=== PATIENT | male | born 1955 | race Caucasian/White ===

== ENCOUNTER 2017-04-16 05:05 | Inpatient (IN) | payer SELFPAY ==
[2017-04-16] MEDS: ONDANSETRON 4 MG INJ IV (05:17)
[2017-04-16 05:18] LABS: ADD MAN DIFF? NO
[2017-04-16] MEDS: HEPARIN 1000 UNITS/ML 10 ML INJ IV (05:20)
[2017-04-16] MEDS: morphine 10 MG INJ IV (05:21)
[2017-04-16 05:24] LABS: BASOPHIL # 0.1 10^3/ul (0.0-0.1); BASOPHILS % 0.3 % (0.0-2.0); EOSINOPHILS # 0.3 10^3/ul (0.0-0.5); HEMATOCRIT 50.7 % (42.0-52.0); LYMPHOCYTES # 4.4 10^3/ul (0.8-2.9); LYMPHOCYTES % 29.9 % (15.0-51.0); MEAN CORPUSCULAR HEMOGLOBIN 25.2 pg (29.0-33.0); MEAN CORPUSCULAR HGB CONC 31.6 g/dl (32.0-37.0); MEAN PLATELET VOLUME 9.9 fl (7.4-10.4); MONOCYTE # 1.1 10^3/ul (0.3-0.9); MONOCYTES % 7.5 % (0.0-11.0); NEUTROPHIL # 8.7 10^3/ul (1.6-7.5); NEUTROPHILS % 59.5 % (39.0-77.0); PLATELET COUNT 301 10^3/UL (140-415); RED BLOOD COUNT 6.34 10^6/ul (4.70-6.10); RED CELL DISTRIBUTION WIDTH 17.5 % (11.5-14.5)
[2017-04-16 05:24] LABS: WHITE BLOOD COUNT 14.6 10^3/ul (4.8-10.8)
[2017-04-16 05:41] LABS: ANION GAP 19 (8-16); BLOOD UREA NITROGEN 14 mg/dl (7-20); CALCIUM 9.1 mg/dl (8.4-10.2); CARBON DIOXIDE 25 mmol/L (21-31); CHLORIDE 107 mmol/L (97-110); CREATININE 1.04 mg/dl (0.61-1.24); GLUCOSE 143 mg/dl (70-220); POTASSIUM 3.5 mmol/L (3.5-5.1); SODIUM 147 mmol/L (135-144)
[2017-04-16] MEDS ORDERED: HEPARIN 1000 UNITS/ML 10 ML INJ (05:45)
[2017-04-16] MEDS ORDERED: IOHEXOL 350MG/ML 50 ML BTL (05:45)
[2017-04-16] MEDS ORDERED: IODIXANOL LOCM 100 ML BTL ×2 (05:46→06:11)
[2017-04-16] MEDS ORDERED: MIDAZOLAM 1 MG/ML 2 ML INJ (05:46)
[2017-04-16] MEDS ORDERED: FENTAnyl 50 MCG/ML VIAL (05:46)
[2017-04-16 05:53] LABS: B-TYPE NATRIURETIC PEPTIDE 40 PG/ML (0-125); TROPONIN-I 0.033 ng/ml (0.00-0.12)
[2017-04-16] MEDS ORDERED: NITROGLYCERIN (IC) 100 MCG/ML INJ (06:07)
[2017-04-16] MEDS ORDERED: SOD CHLORIDE 0.9% 500 ML (06:11)
[2017-04-16] MEDS ORDERED: TICAGRELOR 90 MG TABLET (06:16)
[2017-04-16] MEDS ORDERED: SOD CHLORIDE 0.9% 1,000 ML IV (06:36)
[2017-04-16] MEDS: ASPIRIN (EC) 81 MG TAB PO (08:57)
[2017-04-16] MEDS ORDERED: HYDROCODONE/APAP (5/325) TAB PO (09:30)
[2017-04-16] MEDS ORDERED: NACL 0.9% 3 ML SYG IV (09:30)
[2017-04-16] MEDS ORDERED: ONDANSETRON 4 MG INJ IV (09:30)
[2017-04-16] MEDS ORDERED: LORAZEPAM 0.5 MG TAB PO (09:30)
[2017-04-16] MEDS ORDERED: ACETAMINOPHEN 325 MG TAB PO (09:30)
[2017-04-16] MEDS ORDERED: morphine 2 MG INJ IV (09:30)
[2017-04-16] MEDS ORDERED: MAGNESIUM HYDROXIDE 30ML CUP PO (09:30)
[2017-04-16] MEDS ORDERED: LACTATED RINGER'S 1,000 ML IV (10:00)
[2017-04-16] MEDS: FAMOTIDINE 20 MG TAB PO ×2 (10:06→20:38)
[2017-04-16] MEDS: SOD CHLORIDE 0.9% 1,000 ML IV (10:12)
[2017-04-16 11:38] LABS: CREATINE KINASE 921 IU/L (23-200)
[2017-04-16 11:44] LABS: CK INDEX 6.3
[2017-04-16 17:31] LABS: CREATINE KINASE 695 IU/L (23-200)
[2017-04-16 17:37] LABS: CK INDEX 6.4
[2017-04-16] MEDS ORDERED: hydrALAzine 20 MG INJ IV (20:30)
[2017-04-16] MEDS: ATORVASTATIN 80 MG TAB PO (20:39)
[2017-04-16] MEDS: CLOPIDOGREL 75 MG TAB PO (20:51)
[2017-04-16] MEDS: VALSARTAN 80 MG TAB PO (20:53)
[2017-04-16] MEDS ORDERED: TICAGRELOR 90 MG TABLET PO (21:00)
[2017-04-17 05:29] LABS: ADD MAN DIFF? NO
[2017-04-17 05:42] LABS: WHITE BLOOD COUNT 12.8 10^3/ul (4.8-10.8)
[2017-04-17 05:42] LABS: BASOPHIL # 0.1 10^3/ul (0.0-0.1); BASOPHILS % 0.4 % (0.0-2.0); EOSINOPHILS # 0.2 10^3/ul (0.0-0.5); EOSINOPHILS % 1.6 % (0.0-7.0); HEMATOCRIT 48.9 % (42.0-52.0); HEMOGLOBIN 15.6 g/dl (14.0-18.0); LYMPHOCYTES # 2.2 10^3/ul (0.8-2.9); LYMPHOCYTES % 17.1 % (15.0-51.0); MEAN CORPUSCULAR HEMOGLOBIN 25.1 pg (29.0-33.0); MEAN CORPUSCULAR HGB CONC 31.9 g/dl (32.0-37.0); MEAN CORPUSCULAR VOLUME 78.6 fl (82.0-101.0); MEAN PLATELET VOLUME 10.4 fl (7.4-10.4); MONOCYTE # 0.8 10^3/ul (0.3-0.9); MONOCYTES % 6.6 % (0.0-11.0); NEUTROPHIL # 9.4 10^3/ul (1.6-7.5); NEUTROPHILS % 73.6 % (39.0-77.0); PLATELET COUNT 252 10^3/UL (140-415); RED BLOOD COUNT 6.22 10^6/ul (4.70-6.10)
[2017-04-17 06:10] LABS: ANION GAP 13 (8-16); BLOOD UREA NITROGEN 8 mg/dl (7-20); CALCIUM 9.1 mg/dl (8.4-10.2); CARBON DIOXIDE 25 mmol/L (21-31); CHLORIDE 111 mmol/L (97-110); CHOL/HDL RATIO 5.8 RATIO; CHOLESTEROL 180 mg/dl (100-200); CREATINE KINASE 361 IU/L (23-200); CREATININE 0.87 mg/dl (0.61-1.24); GLUCOSE 95 mg/dl (70-220); HDL CHOLESTEROL 31 mg/dl (30-78); LDL CHOLESTEROL,CALCULATED 105 mg/dl; SODIUM 145 mmol/L (135-144); TRIGLYCERIDES 220 mg/dl (0-149)
[2017-04-17 06:20] LABS: CK INDEX 4.9
[2017-04-17] MEDS: FAMOTIDINE 20 MG TAB PO (08:49)
[2017-04-17] MEDS: VALSARTAN 80 MG TAB PO (08:49)
[2017-04-17] MEDS: CLOPIDOGREL 75 MG TAB PO (08:50)
[2017-04-17] MEDS: ASPIRIN (EC) 81 MG TAB PO (08:50)
== END 2017-04-17 10:05 | disposition home or self-care (01) | DRG 247 ==
LOC: E/R 05:05 → CCL 05:39 → SDS 05:39 → ICU 06:55
PROC: 0270346 Dilation of Coronary Artery, One Artery, Bifurcation, with Drug-eluting Intraluminal Device, Percutaneous Approach (ICD-10-PCS; principal; 2017-04-16 05:30)
PROC: 4A023N7 Measurement of Cardiac Sampling and Pressure, Left Heart, Percutaneous Approach (ICD-10-PCS; 2017-04-16 05:30)
PROC: B2051ZZ Plain Radiography of Left Heart using Low Osmolar Contrast (ICD-10-PCS; 2017-04-16 05:30)
DX: I21.19 ST elevation (STEMI) myocardial infarction involving other coronary artery of inferior wall (principal); I25.119 Atherosclerotic heart disease of native coronary artery with unspecified angina pectoris; Z72.0 Tobacco use
CPT/HCPCS: 36415; 71045; 80048; 80061; 82550; 82553; 83880; 84484; 85025; 87081; 93005; 93306; 93458; 96374; 96375; 99291-25